=== PATIENT | male | born 1930 | race Caucasian/White ===

== ENCOUNTER 2016-08-03 08:29 | Emergency (ER) | payer MEDICARE, OTHER ==
--- NOTE | 2016-08-03 08:43 | Emergency Department Record ---
History of Present Illness - General Chief Complaint: Syncope Stated Complaint: SYNCOPE Time Seen by Provider: 08/03/16 08:36 Source: Patient Mode of Arrival: EMS Limitations: No limitations Travel/Exposure to [place] Within 21 Days of Symptoms: No - History of Present Illness Initial Comments: 85 yo male presents to ED with a CC of difficultly breathing and near-syncope this morning. 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 Patient reports that his placed his oxygen back on, and his symptoms improved. Patient denies any recent illness, fevers, or cough symptoms. Patient denies chest pain or discomfort. Patient reports "if I had not removed my oxygen, I wouldn't be here". Complaint: Almost passed out Onset/Timin -: Hour(s) Prodromal Symptoms: Lightheaded, Shortness of breath Duration of Episode: 15 -: Minutes(s) Witnessed: Yes - by bystander Injuries Sustained Associated with Event: None Current Symptoms: None Treatments Prior to Arrival: Other (oxygen) - Gonzalez Coma Scale Eye Response: (4) Open spontaneously Motor Response: (6) Obeys commands Verbal Response: (5) Oriented Gonzalez Total: 15 - Related Data Home Medications Medication Instructions Recorded Confirmed Last Taken Aspirin Chewable 81 mg PO DAILY 11/18/15 08/03/16 1 Day Ago Furosemide [Lasix] 20 mg PO DAILY 11/18/15 08/03/16 1 Day Ago Glipizide [Glucotrol] 5 mg PO TID 11/18/15 08/03/16 1 Day Ago Levothyroxine Sodium [Synthroid] 50 mcg PO DAILY 11/18/15 08/03/16 1 Day Ago Lisinopril [Zestril] 5 mg PO DAILY 11/18/15 08/03/16 1 Day Ago Potassium Chloride [Klor-Con] 10 meq PO DAILY 11/18/15 08/03/16 1 Day Ago Pregabalin [Lyrica] 50 mg PO BID 11/18/15 08/03/16 1 Day Ago Simvastatin [Zocor] 20 mg PO QHS 11/18/15 08/03/16 1 Day Ago Fluticasone/Salmeterol [Advair 1 puff IH BID 08/03/16 08/03/16 1 Day Ago 250-50 Diskus] Previous Rx's Medication Instructions Recorded Acetaminophen [Tylenol 325Mg] 650 mg PO Q4H PRN #0 tablet 11/20/15 Albuterol Sulfate [Ventolin Hfa] 2 puff INH RESP.Q4H.WA #1 inhaler 11/20/15 Tiotropium [place] [Spiriva] 1 cap INH RESP.DAILY #30 cap.w.dev 11/20/15 Allergies Allergy/AdvReac Type Severity Reaction Status Date / Time No Known Drug Allergies Allergy Verified 08/03/16 08:39 Review of Systems Constitutional: Denies: Chills, Fever, Malaise, Night sweats Eyes: Denies: Eye discharge, Eye pain, Photophobia ENT: Denies: Congestion, Ear pain, Epistaxis Respiratory: Reports: Dyspnea. Denies: Cough, Wheezes Cardiovascular: Reports: Dyspnea on exertion. Denies: Chest pain Endocrine: Denies: Fatigue, Heat or cold intolerance Gastrointestinal: Denies: Abdominal pain, Nausea, Vomiting Genitourinary: Denies: Incontinence, Retention Musculoskeletal: Denies: Arthralgia, Back pain Skin: Denies: Bruising, Change in color Neurological: Denies: Abnormal gait, Confusion, Headache, Seizure Psychiatric: Denies: Anxiety Hematological/Lymphatic: Denies: Anemia, Blood Clots Past Medical History - SOCIAL HISTORY Smoking Status: Former smoker - RESPIRATORY Hx Respiratory Disorders: Yes Hx COPD: Yes (home O2-3L, uses PRN) Hx Pneumonia: Yes () Hx Sleep Apnea: Yes Hx of CPAP: Yes (with 02 @ 3L) - CARDIOVASCULAR Hx Cardio Disorders: Yes Hx Cardiac Cath: Yes Hx Heart Attack: No Hx Hypertension: Yes Hx Irregular Heartbeat: Yes Comment:: Intermittent claudication; High cholesterol - NEURO Hx Neuro Disorders: No - GI Hx GI Disorders: Yes Hx Celiac Disease: Yes Hx Reflux: Yes - Hx Genitourinary Disorders: Yes Hx Prostate Problems: Yes (CA) - ENDOCRINE Hx Endocrine Disorders: Yes Hx Diabetes: Yes Hx Thyroid Disease: Yes (low) - MUSCULOSKELETAL Hx Musculoskeletal Disorders: No - PSYCH Hx Psych Problems: Yes Hx Anxiety: Yes - HEMATOLOGY/ONCOLOGY Hx Hematology/Oncology Disorders: Yes Hx Cancer: Yes Hx Chemotherapy: No Hx Radiation Therapy: No Family Medical History Hx Heart Disease: Mother, Brother/Sister Physical Exam - General General Appearance: Alert, Oriented x3, Cooperative, Mild distress Limitations: No limitations - Head Head exam: Atraumatic, Normocephalic, Normal inspection Head exam detail: negative: Abrasion, Contusion, Cohn's sign, General tenderness, Hematoma, Laceration - Eye Eye exam: Normal appearance. negative: Conjunctival injection, Periorbital swelling, Periorbital tenderness, Scleral icterus - ENT Ear exam: negative: Auricular hematoma, Auricular trauma Nasal Exam: negative: Active bleeding, Discharge, Dried blood, Foreign body Mouth exam: negative: Drooling, Laceration, Muffled voice, Tongue elevation - Neck Neck exam: Normal inspection. negative: Meningismus, Tenderness - Respiratory Respiratory exam: Decreased breath sounds, Other (crackles bilaterally). negative: Rales, Respiratory distress, Rhonchi, Stridor - Cardiovascular Cardiovascular Exam: Regular rate, Normal rhythm, Normal heart sounds - GI/Abdominal GI/Abdominal exam: Soft. negative: Rebound, Rigid, Tenderness - Rectal Rectal exam: Deferred - exam: Deferred - Extremities Extremities exam: Normal inspection. negative: Calf tenderness, Pedal edema, Tenderness - Back Back exam: Denies: CVA tenderness (R), CVA tenderness (L) - Neurological Neurological exam: Alert, Oriented X3. negative: Motor sensory deficit - Psychiatric Psychiatric exam: Normal affect, Normal mood - Skin Skin exam: Normal color. negative: Abrasion Type of lesion: negative: abrasion Course - Reevaluation(s) Reevaluation #1: 08/03/16 08:57 EKG: NSR 79 Normal axis, IVCD (RBBB, LAFB) T wave inversions III, AVF, V1-V4 Unchanged from 01/01/16. Reevaluation #2: 08/03/16 09:09 Labs reviewed and are grossly unremarkable for an acute process. Reevaluation #3: 08/03/16 09:26 CXR: Moderate pulmonary fibrosis, nothing acute. Patient and family were updated on all results, patient reports that he feels at his baseline, Oxygen level 98-100% at rest. Patient appears stable for dsicharge home with instructions for follow-up with Dr. Fam later this week. Medical Decision Making - Lab Data Result diagrams: 08/03/16 08:45 08/03/16 08:45 Disposition Disposition: Discharge Clinical Impression: Pre-syncope Chronic Obstructive Pulmonary Disease Qualifiers: COPD type: emphysema Emphysema type: panlobular Qualified Code(s): J43.1 - Panlobular emphysema Disposition: Home, Self-Care Condition: (2) Stable Instructions: Emphysema (ED) Additional Instructions: Return to ED if your symptoms worsen or if you have any concerns. Follow-up with Dr. Fam in 1-3 days as directed. Forms: Patient Portal Access Time of Disposition: 09:35
[2016-08-03 08:52] LABS: BASO % 0.3 % (0-6); EOS % 3.6 % (0-6); GRAN % 71.6 % (47-80); HEMATOCRIT 40.1 % (42.0-52.0); HEMOGLOBIN 13.6 gm/dl (14.0-18.0); LYMPH % 16.2 % (16-45); MEAN CORPUSCULAR HEMOGLOBIN 33.2 pg (27-33); MEAN CORPUSCULAR HGB CONC 33.9 g/dl (32-36); MEAN PLATELET VOLUME 9.9 fl (7.4-10.4); MONO % 8.3 % (0-9); PLATELET COUNT 146 K/uL (130-400); RED BLOOD COUNT 4.09 M/uL (4.40-5.70); RED CELL DISTRIBUTION WIDTH 12.9 % (11.5-14.5); WHITE BLOOD COUNT W/O DIFF 9.1 K/uL (4.2-12.2)
[2016-08-03 09:04] LABS: ALBUMIN 3.8 gm/dL (3.5-5.0); ANION GAP 7.8 (7-16); BILIRUBIN,TOTAL 0.73 mg/dL (0.2-1.3); CARBON DIOXIDE 28.2 mmol/L (22-30); CREATININE 1.4 mg/dL (0.66-1.25); TOTAL PROTEIN 7.6 gm/dL (6.3-8.2)
[2016-08-03 09:08] LABS: INFLUENZA A NEGATIVE (NEGATIVE); INFLUENZA B NEGATIVE (NEGATIVE)
== END 2016-08-03 10:39 | disposition home or self-care (01) ==
LOC: ER 08:29
DX: R55 Syncope and collapse (principal); J43.1 Panlobular emphysema; R06.02 Shortness of breath; I10 Essential (primary) hypertension; E11.9 Type 2 diabetes mellitus without complications; Z79.84 Long term (current) use of oral hypoglycemic drugs; Z87.891 Personal history of nicotine dependence
CPT/HCPCS: 71010; 80053; 85025; 87400; 93005; 93010; 99284

== ENCOUNTER 2016-09-17 21:19 | Inpatient (IN) | payer MEDICARE, OTHER ==
[2016-09-17] MEDS ORDERED: IPRATROPIUM/ALBUTEROL (0.5MG/3MG) NEB INH ONE (21:45)
[2016-09-17] MEDS ORDERED: METHYLPREDNISOLONE PF 125MG/VIAL IVP ONE ×2 (21:45→21:46)
[2016-09-17 22:19] LABS: ARTERIAL BLD GAS O2 SATURATION 97.4 % (95-98); ARTERIAL BLOOD GAS BASE EXCESS -0.7 mmol/L (-2 - 3); ARTERIAL BLOOD GAS HCO3 22.3 mmol/L (18-23); ARTERIAL BLOOD GAS PCO2 33.2 mmHg (35-48); ARTERIAL BLOOD GAS pH 7.44 (7.35-7.45); CARBOXYHEMOGLOBIN 1.6 % (0-1.5); METHEMOGLOBIN 0.2 % (0.0-1.5); O2 HEMOGLOBIN 95.7 % vol (94-99); TOTAL HEMOGLOBIN 13.4 g/dl (14-18)
[2016-09-17 22:22] LABS: BASO % 0.5 % (0-6); EOS % 5.5 % (0-6); GRAN % 61.3 % (47-80); HEMATOCRIT 41.3 % (42.0-52.0); HEMOGLOBIN 13.4 gm/dl (14.0-18.0); LYMPH % 21.8 % (16-45); MEAN CELL VOLUME 95.8 fl (81-97); MEAN CORPUSCULAR HGB CONC 32.4 g/dl (32-36); MONO % 10.9 % (0-9); PLATELET COUNT 190 K/uL (130-400); RED BLOOD COUNT 4.31 M/uL (4.40-5.70); RED CELL DISTRIBUTION WIDTH 12.7 % (11.5-14.5); WHITE BLOOD COUNT W/O DIFF 10.1 K/uL (4.2-12.2)
[2016-09-17 22:31] LABS: ANION GAP 9.3 (7-16); CARBON DIOXIDE 26.7 mmol/L (22-30); CREATININE 1.5 mg/dL (0.66-1.25)
[2016-09-17] MEDS ORDERED: FUROSEMIDE IV 40MG/4ML VIAL IVP ONE (22:54)
[2016-09-17 23:09] LABS: TROPONIN I 0.035 ng/mL (0.00-0.034)
[2016-09-17] MEDS ORDERED: ALBUTEROL SULFATE (0.083%) 2.5 MG/3 ML NEB INH ONE (23:32)
--- NOTE | 2016-09-17 23:35 | Emergency Department Record ---
History of Present Illness - General Chief Complaint: Shortness of breath Stated Complaint: KARIE Time Seen by Provider: 09/17/16 21:42 Source: Patient, Family Mode of Arrival: EMS Limitations: No limitations - History of Present Illness Initial Comments: pt was increasingly sob, prod cough. pt was recently on abx for pneumonia. pt has hx of pulmonary fibrosis. pt became hypoxic tonight. MD Complaint: Cough, Shortness of breath Onset/Timin -: Hour(s) Worsens With: Exertion, Lying flat Known History Of: Congestive heart failure, COPD, Recurrent pneumonia Context: Recent URI Associated Symptoms: Denies other symptoms Treatments Prior to Arrival: Oxygen - Related Data Home Oxygen Therapy: Yes Home Oxygen Amount: other Home Medications Medication Instructions Recorded Confirmed Last Taken Aspirin Chewable 81 mg PO DAILY 11/18/15 09/17/16 09/17/16 Furosemide [Lasix] 20 mg PO DAILY 11/18/15 09/17/16 09/17/16 Glipizide [Glucotrol] 5 mg PO TID 11/18/15 09/17/16 09/17/16 Levothyroxine Sodium [Synthroid] 50 mcg PO DAILY 11/18/15 09/17/16 09/17/16 Lisinopril [Zestril] 5 mg PO DAILY 11/18/15 09/17/16 09/17/16 Potassium Chloride [Klor-Con] 10 meq PO DAILY 11/18/15 09/17/16 09/16/16 Pregabalin [Lyrica] 50 mg PO BID 11/18/15 09/17/16 09/17/16 Simvastatin [Zocor] 20 mg PO QHS 11/18/15 09/17/16 09/16/16 Fluticasone/Salmeterol [Advair 1 puff IH BID 08/03/16 09/17/16 09/17/16 250-50 Diskus] Fish Oil/Dha/Epa [Fish Oil 1,200 1,200 mg PO DAILY 09/17/16 09/17/16 09/17/16 mg Fish Oil] Previous Rx's Medication Instructions Recorded Albuterol Sulfate [Ventolin Hfa] 2 puff INH RESP.Q4H.WA #1 inhaler 11/20/15 Tiotropium [place] [Spiriva] 1 cap INH RESP.DAILY #30 cap.w.dev 11/20/15 Allergies Allergy/AdvReac Type Severity Reaction Status Date / Time No Known Drug Allergies Allergy Verified 08/03/16 08:39 Travel Screening - Travel/Exposure Within Last 30 Days Have you traveled within the last 30 days?: No Review of Systems Reviewed: No additional complaints except as noted below Constitutional: Reports: As per HPI. Denies: Chills, Fever, Malaise, Night sweats, Weakness, Weight change Eyes: Reports: As per HPI. Denies: Eye discharge, Eye pain, Photophobia, Vision change ENT: Reports: As per HPI. Denies: Congestion, Dental pain, Ear pain, Epistaxis , Hearing loss, Throat pain Respiratory: Reports: As per HPI. Denies: Cough, Dyspnea, Hemoptysis, Stridor, Wheezes Cardiovascular: Reports: As per HPI. Denies: Arrhythmia, Chest pain, Dyspnea on exertion, Edema, Murmurs, Orthopnea, Palpitations, Paroxysmal nocturnal dyspnea, Rheumatic Fever, Syncope Endocrine: Reports: As per HPI. Denies: Fatigue, Heat or cold intolerance, Polydipsia, Polyuria Gastrointestinal: Reports: As per HPI. Denies: Abdominal pain, Constipation, Diarrhea, Hematemesis, Hematochezia, Melena, Nausea, Vomiting Genitourinary: Reports: As per HPI. Denies: Dysuria, Frequency, Hematuria, Incontinence, Retention, Testicular pain, Testicular mass, Urgency Musculoskeletal: Reports: As per HPI. Denies: Arthralgia, Back pain, Gout, Joint swelling, Myalgia, Neck pain Skin: Reports: As per HPI. Denies: Bruising, Change in color, Change in hair/ nails, Lesions, Pruritus, Rash Neurological: Reports: As per HPI. Denies: Abnormal gait, Confusion, Headache, Numbness, Paresthesias, Seizure, Tingling, Tremors, Vertigo, Weakness Psychiatric: Reports: As per HPI. Denies: Anxiety, Auditory hallucinations, Depression, Homicidal thoughts, Suicidal thoughts, Visual hallucinations Hematological/Lymphatic: Reports: As per HPI. Denies: Anemia, Blood Clots, Easy bleeding, Easy bruising, Swollen glands Past Medical History - SOCIAL HISTORY Smoking Status: Former smoker Alcohol Use: None Drug Use: None - RESPIRATORY Hx Respiratory Disorders: Yes Hx COPD: Yes (6L) Hx Pneumonia: Yes (1-2016) Hx Sleep Apnea: Yes Hx of CPAP: Yes (with 02 @ 3L) - CARDIOVASCULAR Hx Cardio Disorders: Yes Hx Cardiac Cath: Yes Hx Heart Attack: No Hx Hypertension: Yes Hx Irregular Heartbeat: Yes Comment:: Intermittent claudication; High cholesterol - NEURO Hx Neuro Disorders: No - GI Hx GI Disorders: Yes Hx Celiac Disease: Yes Hx Reflux: Yes - Hx Genitourinary Disorders: Yes Hx Prostate Problems: Yes (CA) - ENDOCRINE Hx Endocrine Disorders: Yes Hx Diabetes: Yes Hx Thyroid Disease: Yes (low) - MUSCULOSKELETAL Hx Musculoskeletal Disorders: No - PSYCH Hx Psych Problems: Yes Hx Anxiety: Yes - HEMATOLOGY/ONCOLOGY Hx Hematology/Oncology Disorders: Yes Hx Cancer: Yes Hx Chemotherapy: No Hx Radiation Therapy: No Family Medical History Any Significant Family History?: Yes Hx Heart Disease: Mother, Brother/Sister Physical Exam - General General Appearance: Alert, Oriented x3, Cooperative, Moderate distress - Head Head exam: Normal inspection - Eye Eye exam: Normal appearance, PERRL, EOMI Pupils: Normal accommodation - ENT ENT exam: Normal exam, Mucous membranes moist, Normal external ear exam, Normal orophraynx Ear exam: Normal external inspection. negative: External canal tenderness Nasal Exam: Normal inspection. negative: Discharge, Sinus tenderness Mouth exam: Normal external inspection, Tongue normal Teeth exam: Normal inspection. negative: Dental caries Throat exam: Normal inspection. negative: Tonsillar erythema, Tonsillar exudate - Neck Neck exam: Normal inspection, Full ROM. negative: Tenderness - Respiratory Respiratory exam: Rales, Respiratory distress, Rhonchi - Cardiovascular Cardiovascular Exam: Normal rhythm, Normal heart sounds, Tachycardia - GI/Abdominal GI/Abdominal exam: Soft, Normal bowel sounds. negative: Tenderness - Rectal Rectal exam: Deferred - exam: Deferred - Extremities Extremities exam: Normal inspection, Full ROM, Normal capillary refill. negative: Tenderness - Back Back exam: Reports: Normal inspection, Full ROM. Denies: Muscle spasm, Rash noted, Tenderness - Neurological Neurological exam: Alert, CN II-XII intact, Normal gait, Oriented X3 - Psychiatric Psychiatric exam: Normal affect, Normal mood - Skin Skin exam: Dry, Intact, Normal color, Warm Course Vital Signs 09/17/16 09/17/16 09/17/16 21:24 21:43 22:29 Pulse Rate 94 H Pulse Rate [ 99 H Pulse Ox Probe] Respiratory 24 24 Rate Blood Pressure 162/94 [Left Arm] Blood Pressure [Right Arm] Pulse Ox 91 L 98 09/17/16 09/17/16 09/17/16 22:30 22:46 23:05 Pulse Rate Pulse Rate [ 89 90 Pulse Ox Probe] Respiratory 24 21 Rate Blood Pressure [Left Arm] Blood Pressure 150/85 147/86 [Right Arm] Pulse Ox 94 L 92 L 91 L - Reevaluation(s) Reevaluation #1: 09/18/16 01:52 pt is better. he diuresed 1000 Medical Decision Making - Management Options MDM Management: Additional Work-up Planned (e.g. ADM/Transfer/OP Study) - Data Complexity MDM Data: Labs Ordered and/or Reviewed, X-Ray Ordered and/or Reviewed, EKG Ordered and/or Reviewed - Lab Data Result diagrams: 09/17/16 21:06 09/17/16 21:06 Lab Results 09/17/16 09/17/16 09/17/16 Range/Units 21:06 21:06 22:15 WBC 10.1 (4.2-12.2) K/uL RBC 4.31 L (4.40-5.70) M/uL Hgb 13.4 L (14.0-18.0) gm/dl Hct 41.3 L (42.0-52.0) % MCV 95.8 (81-97) fl MCH 31.0 (27-33) pg MCHC 32.4 (32-36) g/dl RDW 12.7 (11.5-14.5) % Plt Count 190 (130-400) K/uL MPV 10.0 (7.4-10.4) fl Gran % 61.3 (47-80) % Lymphocytes % 21.8 (16-45) % Monocytes % 10.9 H (0-9) % Eosinophils % 5.5 (0-6) % Basophils % 0.5 (0-6) % Puncture Site Left wrist pCO2 33.2 L (35-48) mmHg pO2 85.0 (83-108) mmHg HCO3 22.3 (18-23) mmol/L Oxyhemoglobin 95.7 (94-99) % vol ABG pH 7.44 (7.35-7.45) ABG O2 Saturation 97.4 (95-98) % ABG Base Excess -0.7 (-2 - 3) mmol/L Dominik Test Not Reportable Carboxyhemoglobin 1.6 H (0-1.5) % Methemoglobin 0.2 (0.0-1.5) % Total Hemoglobin 13.4 L (14-18) g/dl Actual Respiration Rate 24.0 H (10-18) /MIN FiO2 Not Reportable Sodium 134 L (136-145) mmol/L Potassium 4.3 (3.5-5.1) mmol/L Chloride 98 (98-107) mmol/L Carbon Dioxide 26.7 (22-30) mmol/L Anion Gap 9.3 (7-16) BUN 32 H (9-20) mg/dL Creatinine 1.5 H (0.66-1.25) mg/dL Estimated GFR 47 ml/min Random Glucose 142 H (70-110) mg/dL Calcium 9.1 (8.5-10.1) mg/dL Troponin I 0.035 H (0.00-0.034) ng/mL NT-Pro-B Natriuret Pep 67671.00 H (<450) pg/mL - EKG Data EKG: Unchanged From Previous - Radiology Data Radiology results: Report reviewed, Image reviewed Disposition Disposition: Admit Clinical Impression: Hypoxia CHF (congestive heart failure) Qualifiers: Congestive heart failure type: unspecified congestive heart failure type Congestive heart failure chronicity: acute on chronic Qualified Code(s): I50.9 - Heart failure, unspecified Pneumonia Qualifiers: Pneumonia type: due to unspecified organism Laterality: bilateral Lung location : unspecified part of lung Qualified Code(s): J18.9 - Pneumonia, unspecified organism Disposition: Still a Patient at [facility] Decision to Admit: Admit from ER Decision to Admit Date: 09/18/16 Decision to Admit Time: 01:54
[2016-09-18] MEDS ORDERED: CEFTRIAXONE SODIUM 1 GM in 0.9 % SODIUM CHLORIDE 100ML 100 ML IVPB ONE (01:49)
[2016-09-18] MEDS ORDERED: AZITHROMYCIN 500 MG TABLET PO ONE (01:50)
[2016-09-18] MEDS ORDERED: ACETAMINOPHEN 500 MG TABLET PO PRN (02:46)
[2016-09-18] MEDS ORDERED: IPRATROPIUM/ALBUTEROL (0.5MG/3MG) NEB INH PRN (02:46)
[2016-09-18] MEDS: ALBUTEROL SULFATE (0.083%) 2.5 MG/3 ML NEB INH SCH ×3 (03:31→08:49)
[2016-09-18] MEDS: GLIPIZIDE 5 MG TABLET PO SCH ×3 (07:05→17:31)
[2016-09-18] MEDS: LEVOTHYROXINE SODIUM 50 MCG TABLET PO SCH (07:06)
[2016-09-18] MEDS ORDERED: ALBUTEROL SULFATE (0.083%) 2.5 MG/3 ML NEB INH PRN (09:30)
[2016-09-18] MEDS ORDERED: METHYLPREDNISOLONE PF 125MG/VIAL IVP SCH (10:00)
[2016-09-18] MEDS ORDERED: POTASSIUM CHLORIDE 10 MEQ TAB PO SCH (10:00)
[2016-09-18] MEDS: IPRATROPIUM/ALBUTEROL (0.5MG/3MG) NEB INH SCH ×4 (10:03→21:38)
[2016-09-18] MEDS: CEFTRIAXONE SODIUM 1 GM in 0.9 % SODIUM CHLORIDE 100ML 100 ML IVPB SCH (10:24)
[2016-09-18] MEDS: METHYLPREDNISOLONE PF 125MG/VIAL IVP SCH ×2 (10:24→18:08)
[2016-09-18] MEDS: ASPIRIN 81 MG CHEWABLE TABLET PO SCH (10:25)
[2016-09-18] MEDS: PREGABALIN 50 MG CAPSULE PO SCH ×2 (10:25→22:15)
[2016-09-18] MEDS: ENOXAPARIN 30 MG/0.3 ML SYR SQ SCH (10:25)
[2016-09-18] MEDS: LISINOPRIL 5 MG TABLET PO SCH (10:25)
[2016-09-18] MEDS: AZITHROMYCIN 500 MG TABLET PO SCH (10:25)
[2016-09-18] MEDS: FUROSEMIDE 20 MG TABLET PO SCH (10:25)
[2016-09-18] MEDS ORDERED: PATIENT OWN MED: PO PRN (21:52)
[2016-09-18] MEDS: SIMVASTATIN 20 MG TABLET PO SCH (22:15)
[2016-09-18] MEDS ORDERED: MAGNESIUM HYDROXIDE PO PRN (23:00)
[2016-09-19] MEDS: METHYLPREDNISOLONE PF 125MG/VIAL IVP SCH ×2 (01:00→09:57)
[2016-09-19] MEDS: CEFTRIAXONE SODIUM 1 GM in 0.9 % SODIUM CHLORIDE 100ML 100 ML IVPB SCH ×3 (01:28→23:07)
[2016-09-19] MEDS: IPRATROPIUM/ALBUTEROL (0.5MG/3MG) NEB INH SCH ×6 (01:30→21:55)
[2016-09-19] MEDS ORDERED: CEFTRIAXONE SODIUM 1 GM in 0.9 % SODIUM CHLORIDE 100ML 100 ML IVPB SCH (02:00)
[2016-09-19 06:06] LABS: ANION GAP 10.8 (7-16); CARBON DIOXIDE 22.2 mmol/L (22-30); CREATININE 1.4 mg/dL (0.66-1.25)
[2016-09-19] MEDS: LEVOTHYROXINE SODIUM 50 MCG TABLET PO SCH (07:05)
[2016-09-19] MEDS: GLIPIZIDE 5 MG TABLET PO SCH ×3 (07:06→17:19)
[2016-09-19] MEDS: ASPIRIN 81 MG CHEWABLE TABLET PO SCH (09:39)
[2016-09-19] MEDS: LISINOPRIL 5 MG TABLET PO SCH (09:39)
[2016-09-19] MEDS: ENOXAPARIN 30 MG/0.3 ML SYR SQ SCH (09:39)
[2016-09-19] MEDS: PREGABALIN 50 MG CAPSULE PO SCH ×2 (09:39→21:37)
[2016-09-19] MEDS: FUROSEMIDE 20 MG TABLET PO SCH (09:39)
[2016-09-19] MEDS: AZITHROMYCIN 500 MG TABLET PO SCH (09:39)
[2016-09-19] MEDS: PREDNISONE 20 MG TAB PO SCH (17:19)
[2016-09-19] MEDS: NOVOLOG FLEXPEN (INSULIN ASPART) 100 UNITS/ML SQ SCH (17:21)
[2016-09-19] MEDS: SIMVASTATIN 20 MG TABLET PO SCH (21:36)
[2016-09-20] MEDS: IPRATROPIUM/ALBUTEROL (0.5MG/3MG) NEB INH SCH ×2 (02:27→05:53)
[2016-09-20 06:46] LABS: ANION GAP 9.6 (7-16); CARBON DIOXIDE 24.4 mmol/L (22-30); CREATININE 1.4 mg/dL (0.66-1.25)
--- NOTE | 2016-09-20 07:16 | RADIOLOGY REPORT ---
EXAM: PORTABLE CHEST HISTORY: SHORTNESS OF BREATH. TECHNIQUE: AP portable view of the chest was obtained. Comparison: Portable chest 08/03/16. FINDINGS: Stable heart size. Diffuse interstitial infiltrate which has changed relatively little from the prior study. This was also present back on and presumably therefore represents chronic fibrosis rather than recurrent acute interstitial infiltrate in a similar pattern. Postop sternotomy and surgical clips overlying the left upper chest as before. No definite pleural effusion of pneumothorax evident. IMPRESSION: OVERALL LITTLE APPRECIABLE CHANGE FROM 08/03/16 WITH DIFFUSE INTERSTITIAL INFILTRATE SIMILAR TO BEFORE, PRESUMABLY FIBROSIS DESCRIBED ABOVE. JOB NUMBER: [id number] [facility]
[2016-09-20] MEDS: GLIPIZIDE 5 MG TABLET PO SCH ×3 (07:35→17:01)
[2016-09-20] MEDS: LEVOTHYROXINE SODIUM 50 MCG TABLET PO SCH (07:35)
--- NOTE | 2016-09-20 07:44 | Discharge Note ---
VTE H&P Assessment - Risk for VTE Risk for VTE: Yes Risk Level: Moderate Risk Assessment Date: 09/18/16 Risk Assessment Time: 12:00 VTE Orders Placed or Will Be Placed: Yes Discharge Medications - Discharge Medications Prescriptions: Azithromycin [Zithromax] 500 mg PO DAILY #7 tab Prednisone [Prednisone 10Mg] 10 mg PO ASDIR #30 tab Home Medications: Ambulatory Orders Aspirin Chewable 81 mg PO DAILY 11/18/15 [Last Taken 09/17/16] Glipizide [Glucotrol] 5 mg PO TID 11/18/15 [Last Taken 09/17/16] Levothyroxine Sodium [Synthroid] 50 mcg PO DAILY 11/18/15 [Last Taken 09/17/16] Lisinopril [Zestril] 5 mg PO DAILY 11/18/15 [Last Taken 09/17/16] Pregabalin [Lyrica] 50 mg PO BID 11/18/15 [Last Taken 09/17/16] Simvastatin [Zocor] 20 mg PO QHS 11/18/15 [Last Taken 09/16/16] Albuterol Sulfate [Ventolin Hfa] 2 puff INH RESP.Q4H.WA #1 inhaler 11/20/15 [ Last Taken 09/17/16] Tiotropium [place] [Spiriva] 1 cap INH RESP.DAILY #30 cap.w.dev 11/20/15 [Last Taken 09/17/16] Fluticasone/Salmeterol [Advair 250-50 Diskus] 1 puff IH BID 08/03/16 [Last Taken 09/17/16] Fish Oil/Dha/Epa [Fish Oil 1,200 mg Fish Oil] 1,200 mg PO DAILY 09/17/16 [Last Taken 09/17/16] Acetaminophen [Tylenol 500Mg Tab] 1,000 mg PO Q6H PRN 09/20/16 [Last Taken Unknown] Aspirin Chewable 81 mg PO DAILY tab.chew 09/20/16 [Last Taken Unknown] Azithromycin [Zithromax] 500 mg PO DAILY #7 tab 09/20/16 [Last Taken Unknown] Prednisone [Prednisone 10Mg] 10 mg PO ASDIR #30 tab 09/20/16 [Last Taken Unknown ] Discharge Note - Date Date of Discharge Note: 09/20/16 Disposition: Home, Self-Care Condition: (1) Good Additional Instructions: follow up with Dr. Fam on September 22 zithromycin 500 mg daily for 7 days Referrals: Ar Fam M.D., F.A.C.P. [Primary Care Provider] - Forms: Patient Portal Access Activity at Discharge: Increase Activity as Tolerated
[2016-09-20] MEDS: FLUTICASONE/SALMETEROL 250/50 DISKUS INH SCH ×2 (08:12→20:14)
[2016-09-20] MEDS: TIOTROPIUM BROMIDE 5 CAPSULES INH SCH (08:13)
[2016-09-20] MEDS: FUROSEMIDE 20 MG TABLET PO SCH (09:19)
[2016-09-20] MEDS: AZITHROMYCIN 500 MG TABLET PO SCH (09:19)
[2016-09-20] MEDS: ASPIRIN 81 MG CHEWABLE TABLET PO SCH (09:19)
[2016-09-20] MEDS: NOVOLOG FLEXPEN (INSULIN ASPART) 100 UNITS/ML SQ SCH ×2 (09:24→17:02)
[2016-09-20] MEDS: PREDNISONE 20 MG TAB PO SCH ×2 (09:24→17:01)
[2016-09-20] MEDS: ENOXAPARIN 30 MG/0.3 ML SYR SQ SCH (09:27)
[2016-09-20] MEDS: LISINOPRIL 5 MG TABLET PO SCH (09:27)
[2016-09-20] MEDS: PREGABALIN 50 MG CAPSULE PO SCH ×2 (09:27→22:19)
--- NOTE | 2016-09-20 09:44 | History and Physical Report ---
DATE OF ADMISSION: 09/18/2016 CHIEF COMPLAINT: Dyspnea. HISTORY OF CHIEF COMPLAINT: this 85-year-old male presented to the Emergency Department for evaluation because of dyspnea which has been started about 24 hours prior. He recently was started on amoxicillin for an upper respiratory infection but was not really getting better. He is coughing up yellow sputum. He went into on because he needed respite care because his was going to be going to [place] for a grandson's ; however, when he came into the hospital she canceled the trip and has decided to stay in town rather than traveling to [place]. The patient was seen in the Emergency Department by Dr. Silva, and was given breathing treatments, oxygen, IV Lasix 40 mg IV, and he diuresed 1000 mg and is feeling much better. She was concerned about his respiratory status, was admitted to the hospital. He has pulmonary fibrosis on his x-ray and she is concerned that maybe the pulmonary fibrosis could be pneumonia. He is currently on 9 liters of O2 which keeps him at a pulse ox of 93%. He is not in any respiratory distress with that oxygen level and as long as he does not get up and move around he does not have respiratory distress. He says typically when he gets up and moves around at home with 6 liters of O2 on, he drops down into the low 80s on pulse ox and then he runs about 90-93 at rest, is his typical pulse ox's. MEDICAL HISTORY: Pulmonary fibrosis, COPD. Hypoxia requiring home oxygen at 6 liters per minute. His home oxygen machine will go up to 10 liters per minute. He has been on the 6 liters per minute for about 3-4 months. His previous oxygen device was only able to go up to 5 liters. He had to switch over to a new device which allows him to go up to 10 liters per minute. He has diabetes mellitus type 2, hypertension, obstructive sleep apnea, uses CPAP, and hypothyroidism. SURGICAL HISTORY: appendectomy, coronary artery bypass grafting 3 vessels 1986, prostate surgery, aortic bypass in 1997. CURRENT MEDICATIONS: 1. Spiriva 1 puff daily. 2. Simvastatin 20 mg at h.s. 3. Lyrica 50 mg b.i.d. 4. Potassium chloride 10 mEq daily. 5. Lisinopril 5 mg daily. 6. Levothyroxine 50 mcg daily. 7. Glipizide 5 mg t.i.d. 8. Lasix, normally 20 mg daily. 9. Advair 250/50 one puff b.i.d. 10. Fish oil 1200 mg daily. 11. Ventolin rescue inhaler 2 puffs q.4 hours p.r.n. rescue only. 12. Aspirin 81 mg daily. 13. He also uses [id number] Mucinex 600 mg b.i.d. 14. He has a CPAP machine, along with home oxygen at 6 liters per minute. ALLERGIES: No known drug allergies. SOCIAL HISTORY: He is a former smoker, he stopped in 2005. He started smoking at 18 years of age and smoked until 2005 at 1-1/2 packs a day. No alcohol or drug use. FAMILY HISTORY: his mother had heart disease. Brother and sister had heart disease. SYSTEMS REVIEW: HEENT: He did have congestion, cough and yellow sputum in the last week. He was placed on amoxicillin. He has 1 more day left of that but he is now in the hospital so he will be done with the amoxicillin. Cardiovascular: He does have coronary artery disease. He had bypass grafting. No recent difficulties with angina or coronary artery disease. He has not seen a director of pediatric rehabilitation in about a year. He says his director of pediatric rehabilitation is in [place]. He moved here from [place] because he could not tolerate the 6000 foot altitude with his lung condition and that is his home area but he has a family that lives here in [place]. Respiratory: As above. Short of breath, cough, congestion, sputum, pulmonary fibrosis, COPD, ex-smoking history. Gastrointestinal: No nausea, vomiting, diarrhea, black stools, or bloody stools. Genitourinary: No dysuria, hematuria, frequency, or burning on urination. Musculoskeletal: No joint or bone abnormalities. Neurologic: No CVA, paralysis or paresthesias. Endocrine: He has diabetes mellitus type 2 and hypothyroidism. Integument: No rash, ulcerative changes moles, or yellow skin. PHYSICAL EXAMINATION: VITAL SIGNS: Height is 5 feet 9 inches. Weight is 153 pounds. Temperature is 97.6, pulse is 100, blood pressure is 124/66, respiratory rate is 24, pulse ox is 91% on 9 liters with a new high-flow device that was recently approved for the hospital. HEENT: Pupils are equal, round and reactive to light and accommodation. Extraocular muscles are intact. Throat is clear. Nose is clear. Tympanic membranes more. NECK: Supple, no jugular venous distention, no hepatojugular reflux, no carotid bruits. Thyroid is smooth. LUNGS: Decreased breath sounds bilaterally. HEART: Regular rate and rhythm without murmurs, clicks, rubs, or gallops. ABDOMEN: Soft, nontender, no hepatosplenomegaly, no masses, no tenderness. Bowel sounds active. No bruits. EXTREMITIES: No pitting edema, no cyanosis, no clubbing. Full range of motion. Peripheral pulses good. BREASTS: Normal male breasts. RECTAL: Deferred. GENITALIA: Deferred. NEUROLOGIC: Cranial nerves II-XII intact. No gross defects. Sensation normal. Strength normal. Deep tendon reflexes equal bilaterally. Babinski is negative. MENTAL STATUS: Alert and oriented x 3. IMPRESSION: 1. Acute bronchitis. 2. Acute exacerbation of chronic obstructive pulmonary disease. 3. Hypoxia requiring 9 liters per minute nasal cannula. Normally he is on home oxygen at 6 liters per minute for the last 3-4 months. 4. Diabetes mellitus type 2. 5. Pulmonary fibrosis. 6. Hypertension. 7. Obstructive sleep apnea. 8. Hypothyroidism. Uses a CPAP machine too for his obstructive sleep apnea. PLAN: 1. IV Rocephin 1 gram q.12 hours. 2. Azithromycin 500 mg orally daily. 3. Oxygen at 9 liters per minute nasal cannula with a new high-flow device and it is keeping him at 93%. 4. Solu-Medrol 60 mg q.8 hours. Will continue his home medications and continue Lasix at 20 mg a day. 5. His booking manager is Dr. Dawn in [place]. 6. Dr. Fam is his primary doctor. [facility]
[2016-09-20] MEDS: ALBUTEROL HFA 8 GM INHALER INH SCH ×4 (09:54→23:30)
[2016-09-20] MEDS: SIMVASTATIN 20 MG TABLET PO SCH (22:18)
[2016-09-21] MEDS: ALBUTEROL HFA 8 GM INHALER INH SCH ×3 (04:36→08:43)
[2016-09-21] MEDS: LEVOTHYROXINE SODIUM 50 MCG TABLET PO SCH (07:13)
[2016-09-21] MEDS: GLIPIZIDE 5 MG TABLET PO SCH (07:13)
[2016-09-21] MEDS: PREDNISONE 20 MG TAB PO SCH (08:08)
[2016-09-21] MEDS: NOVOLOG FLEXPEN (INSULIN ASPART) 100 UNITS/ML SQ SCH (08:08)
--- NOTE | 2016-09-21 08:30 | Discharge Note ---
VTE H&P Assessment - Risk for VTE Risk for VTE: Yes Risk Level: Moderate Risk Assessment Date: 09/18/16 Risk Assessment Time: 12:00 VTE Orders Placed or Will Be Placed: Yes Discharge Medications - Discharge Medications Prescriptions: Azithromycin [Zithromax] 500 mg PO DAILY #7 tab Prednisone [Prednisone 10Mg] 10 mg PO ASDIR #30 tab Home Medications: Ambulatory Orders Aspirin Chewable 81 mg PO DAILY 11/18/15 [Last Taken 09/17/16] Glipizide [Glucotrol] 5 mg PO TID 11/18/15 [Last Taken 09/17/16] Levothyroxine Sodium [Synthroid] 50 mcg PO DAILY 11/18/15 [Last Taken 09/17/16] Lisinopril [Zestril] 5 mg PO DAILY 11/18/15 [Last Taken 09/17/16] Pregabalin [Lyrica] 50 mg PO BID 11/18/15 [Last Taken 09/17/16] Simvastatin [Zocor] 20 mg PO QHS 11/18/15 [Last Taken 09/16/16] Albuterol Sulfate [Ventolin Hfa] 2 puff INH RESP.Q4H.WA #1 inhaler 11/20/15 [ Last Taken 09/17/16] Tiotropium [place] [Spiriva] 1 cap INH RESP.DAILY #30 cap.w.dev 11/20/15 [Last Taken 09/17/16] Fluticasone/Salmeterol [Advair 250-50 Diskus] 1 puff IH BID 08/03/16 [Last Taken 09/17/16] Fish Oil/Dha/Epa [Fish Oil 1,200 mg Fish Oil] 1,200 mg PO DAILY 09/17/16 [Last Taken 09/17/16] Acetaminophen [Tylenol 500Mg Tab] 1,000 mg PO Q6H PRN 09/20/16 [Last Taken Unknown] Aspirin Chewable 81 mg PO DAILY tab.chew 09/20/16 [Last Taken Unknown] Azithromycin [Zithromax] 500 mg PO DAILY #7 tab 09/20/16 [Last Taken Unknown] Prednisone [Prednisone 10Mg] 10 mg PO ASDIR #30 tab 09/20/16 [Last Taken Unknown ] Discharge Note - Date Date of Discharge Note: 09/21/16 Disposition: Home, Self-Care Condition: (1) Good Additional Instructions: follow up with Dr. Fam on September 22 zithromycin 500 mg daily for 7 days Prescriptions: Azithromycin [Zithromax] 500 mg PO DAILY #7 tab Prednisone [Prednisone 10Mg] 10 mg PO ASDIR #30 tab Referrals: Ar Fam M.D., F.A.C.P. [Primary Care Provider] - Forms: Patient Portal Access Activity at Discharge: Increase Activity as Tolerated
[2016-09-21] MEDS: FLUTICASONE/SALMETEROL 250/50 DISKUS INH SCH (08:41)
[2016-09-21] MEDS: TIOTROPIUM BROMIDE 5 CAPSULES INH SCH (08:42)
[2016-09-21] MEDS: ASPIRIN 81 MG CHEWABLE TABLET PO SCH (09:33)
[2016-09-21] MEDS: FUROSEMIDE 20 MG TABLET PO SCH (09:34)
[2016-09-21] MEDS: AZITHROMYCIN 500 MG TABLET PO SCH (09:35)
[2016-09-21] MEDS: LISINOPRIL 5 MG TABLET PO SCH (09:35)
[2016-09-21] MEDS: ENOXAPARIN 30 MG/0.3 ML SYR SQ SCH (09:35)
[2016-09-21] MEDS: PREGABALIN 50 MG CAPSULE PO SCH (09:39)
--- NOTE | 2016-09-22 13:22 | Discharge Summary ---
DISCHARGE DIAGNOSES: 1. Acute bronchitis. 2. Chronic obstructive pulmonary disease exacerbation. 3. Hypoxia, currently on room air 4L/min, with activity 6L/min. 4. Diabetes mellitus. 5. Pulmonary fibrosis. 6. Hypertension. 7. Obstructive sleep apnea and on CPAP. 8. Hypothyroidism. ATTENDING PHYSICIAN: Yobani Bardales DO REASON FOR HOSPITALIZATION: Dyspnea, low pulse ox, slight cough with productive yellow sputum. This 85-year-old male presented to the emergency department from [facility]. He went to [facility] for a week while his was trying to go to a in [place] because the grandson was killed in a car accident. He started coughing up yellow sputum. His pulse ox dropped down when he would ambulate to a room, which is typical for him but the [facility] people were concerned and sent him to the emergency department for evaluation. He was seen by Dr. Silva because of his dyspnea and hypoxia. Dr. Silva admitted him to the hospital for acute bronchitis, exacerbation of COPD. She also give him 40 of Lasix and felt he had a little bit extra fluid in his lungs. He is requiring 9L oxygen per minute and normally he only requires 6L oxygen at home per minute. To keep him at 93% pulse ox requiring 9L oxygen. When he moves around, he drops down into the low 80s. He states that this happens at home too. SIGNIFICANT FINDINGS: Pulse ox is low when he moves around, sometimes even as low as the high 70s. Chest x-ray overall little appreciable change from 08/03/2016 with diffuse interstitial infiltrates similar to before, presumably fibrosis as described above. EKG sinus rhythm, right bundle-branch block, and left posterior fascicular block. WBC 10,300, hemoglobin 13.8. Blood gases revealed a pH of 7.44, pO2 85, pCO2 33 on 9L O2. His last set of electrolytes with potassium 4.4, sodium 135, chloride 101, BUN 54, creatinine 1.4. Sugar was a little bit elevated. His cardiac enzymes were negative x2. The troponin brain natriuretic peptide was elevated. Could be related to the pulmonary fibrosis. THERAPY PROVIDED: The patient was given IV Rocephin and oral azithromycin. IV Solu-Medrol. He gradually improved. His oxygen requirements are now 4L at rest and 6L with activity. His antibiotics were decreased to azithromycin orally and he is on oral prednisone at this time. We will start out with 40 mg a day for 3 days and then 30 mg a day for 3 days, 20 mg a day for 3 days, and then 10 mg a day for 3 days. CONDITION ON DISCHARGE: Much improved. Initially the patient was going to be discharged on 09/20/2016. Because of his condition and they streamed the of his grandson in [place] to them and they were distraught and felt the could not take care of him at home and she refused to take him home yesterday, so he was kept in the hospital to make sure that he did not decompensate with the stress of going through the grieving process. DISCHARGE INSTRUCTIONS: The patient is to follow up with Dr. Fam tomorrow on Tuesday. Take the azithromycin 500 mg once a day for 7 days, the prednisone taper starting at 40 mg every 3 days dropping it down to 10 mg a day, and continue his home medications. His home medications are Spiriva 1 puff daily, Zocor 20 mg h.s., Lyrica 50 mg b.i.d., Zestril 5 mg daily, levothyroxine 50 mcg daily, Glucotrol 5 mg t.i.d., Advair 250/50 one puff b.i.d., fish oil 1200 mg daily, Ventolin 2 puffs q.4 h. p.r.n., aspirin 81 mg daily, the prednisone taper, and Tylenol p.r.n. CC: KATHIA FAM MD, [facility]
== END 2016-09-21 10:19 | disposition home or self-care (01) | DRG 194 ==
LOC: ER 21:19 → MEDSURG 09-18 02:18
PROVIDERS: ADMIT Emergency Medicine; ATTEND Emergency Medicine
DX: J18.1 Lobar pneumonia, unspecified organism (principal); J44.1 Chronic obstructive pulmonary disease with (acute) exacerbation; E11.9 Type 2 diabetes mellitus without complications; Z79.84 Long term (current) use of oral hypoglycemic drugs; J84.10 Pulmonary fibrosis, unspecified; I10 Essential (primary) hypertension; E03.9 Hypothyroidism, unspecified; I25.810 Atherosclerosis of coronary artery bypass graft(s) without angina pectoris; G47.30 Sleep apnea, unspecified
CPT/HCPCS: 36416; 36600; 71010; 80048; 82375; 82803; 82948; 83880; 84484; 85025; 93005; 93010; 94640; 94760; 94761; 94762; 96365; 96375; 99223; 99233; 99285; J1650; J1940; J2930; J7512; J7613